=== PATIENT | female | born 1965 | race Caucasian/White ===

== ENCOUNTER 2018-04-07 19:29 | Inpatient (IN) | payer MEDICAID, OTHER ==
[~2018-04-07] VITALS: Ht 170.2 cm; Wt 80.9 kg
[2018-04-07] MEDS ORDERED: ALTEPLASE 100 MG/VIAL (ACTIVASE) IV ONE ×2 (19:30→20:00)
[2018-04-07] MEDS ORDERED: GLAT20KI3 SQ (19:44)
[2018-04-07] MEDS ORDERED: ASPI-586 PO (19:44)
[2018-04-07 19:55] LABS: BASOPHILS % (AUTO) 1 % (0-10); EOSINOPHILS # (AUTO) 0.1 10^3/uL (0.0-0.3); EOSINOPHILS % (AUTO) 2 % (0-10); HEMATOCRIT 42 % (35-52); HEMOGLOBIN 14.1 G/DL (11.5-16.0); LYMPHOCYTES # (AUTO) 2.9 X 10^3 (1.0-4.0); LYMPHOCYTES % (AUTO) 42 % (12-44); MEAN CORPUSCULAR HEMOGLOBIN 29 PG (25-34); MEAN CORPUSCULAR HGB CONC 33 G/DL (32-36); MEAN CORPUSCULAR VOLUME 87 FL (80-99); MEAN PLATELET VOLUME 10.5 FL (7.4-10.4); MONOCYTES # (AUTO) 0.5 X 10^3 (0.0-1.0); MONOCYTES % (AUTO) 7 % (0-12); NEUTROPHILS # (AUTO) 3.5 X 10^3 (1.8-7.8); NEUTROPHILS % (AUTO) 49 % (42-75); PLATELET COUNT 291 10^3/uL (130-400); RED BLOOD COUNT 4.88 10^6/uL (4.35-5.85); RED CELL DISTRIBUTION WIDTH 13.9 % (10.0-14.5); WHITE BLOOD COUNT 7.1 10^3/uL (4.3-11.0)
[2018-04-07] MEDS ORDERED: NS IV 1000 ML 1,000 ML IV SCH (20:00)
--- NOTE | 2018-04-07 20:00 | ED Neurological Problem ---
General Chief Complaint: Neurological Problems Stated Complaint: STROKE SYMPTOMS Nursing Triage Note: brought in by [facility] for right sided weakness, facial droop, asphasia. lkwt approx. 1830 Nursing Sepsis Screen: No Definite Risk Source: patient Exam Limitations: no limitations History of Present Illness Date Seen by Provider: Apr 07, 2018 Time Seen by Provider: 19:30 Initial Comments Patient presents by EMS to the ER with symptoms of stroke starting last known well time at 1830. She has no previous history of stroke but she does have a history of multiple sclerosis. She had a sudden acute onset of right facial weakness, right tongue deviation, right arm and leg weakness. She activated EMS and was able to write with her left arm. She does not smoke drink or use drugs. She has not been on steroids recently. She's had some pain in her right elbow and shoulder for the past month that she's been working up outpatient with her doctor and difficulty pronating her wrist secondary to this. EMS reports a blood glucose of 285. The patient denies diabetes. She says she takes aspirin daily but no blood thinners. She did not take her aspirin this morning. Allergies and Home Medications Allergies Coded Allergies: brompheniramine (Verified Allergy, Unknown, 04/07/18) cefixime (Verified Allergy, Unknown, 04/07/18) codeine (Verified Allergy, Unknown, 04/07/18) metronidazole (Verified Allergy, Unknown, 04/07/18) phenylpropanolamine (Verified Allergy, Unknown, 04/07/18) pseudoephedrine (Verified Allergy, Unknown, 04/07/18) tramadol (Verified Allergy, Unknown, 04/07/18) Uncoded Allergies: phener (Allergy, Unknown, 04/07/18) Patient Home Medication List Home Medication List Reviewed: Yes Review of Systems Review of Systems Constitutional: No chills, No diaphoresis Eyes: Denies Blindness, Denies Blurred Vision Ears, Nose, Mouth, Throat: denies ear pain, denies ear discharge Respiratory: No cough, No dyspnea on exertion Cardiovascular: No chest pain, No palpitations Gastrointestinal: No abdominal pain, No constipation, No diarrhea, No nausea Genitourinary: No discharge, No dysuria : No (Status post hysterectomy) Musculoskeletal: see HPI; No back pain; joint pain (Right elbow and shoulder) Psychiatric/Neurological: Denies Anxiety, Denies Depressed; Other (Multiple sclerosis) Past Ugphtlp-Lvaagp-Xaoteh Hx Patient Social History Alcohol Use: Denies Use Recreational Drug Use: No Smoking Status: Never a Smoker Recent Foreign Travel: No Contact w/Someone Who Travel: No Recent Infectious Disease Expo: No Recent Hopitalizations: No Immunizations Up To Date Tetanus Booster (TDap): Unknown Seasonal Allergies Seasonal Allergies: No Past Medical History Surgeries: Yes (hernia) Respiratory: No Cardiac: Yes (mv prolapse) Multiple Sclerosis, TIA : No Genitourinary: No Gastrointestinal: No Musculoskeletal: No Endocrine: No HEENT: No Cancer: No Psychosocial: No Integumentary: No Blood Disorders: No Physical Exam Vital Signs Vital Signs - First Documented Capillary Refill : Less Than 3 Seconds Height, Weight, BMI Height: 5'7.00" Weight: 180lbs. oz. 81.919530vl; BMI Method:Stated General Appearance: WD/WN, moderate distress HEENT: PERRL/EOMI, TMs normal, other (Rightward tongue deviation and right facial droop of branches 2 and 3 of cranial nerve V) Neck: non-tender, full range of motion, supple, normal inspection Respiratory: chest non-tender, lungs clear, normal breath sounds, no respiratory distress, no accessory muscle use Cardiovascular: normal peripheral pulses, regular rate, rhythm, no edema Peripheral Pulses: 2+ Dorsalis Pedis (R), 2+ Left Dors-Pedis (L), 2+ Radial Pulses (R), 2+ Radial Pulses (L) Gastrointestinal: normal bowel sounds, non tender, soft Back: normal inspection, no vertebral tenderness Extremities: normal range of motion, non-tender, normal capillary refill Neurologic/Psychiatric: other (Right facial droop partial right hemiparesis, rightward tongue deviation other cranial nerves are normal as tested) Crainal Nerves: normal hearing, PERRL; No abnormal eye position; abnormal speech (Moderate to severe dysarthria) Coordination/Gait: ABN nose to finger (R); No ABN nose to finger (L); other ( Heel to gomes test right leg is slow and difficult) Motor/Sensory: no sensory deficit, weak motor strength RUE (4 out of 5 without pronator drift), weak motor strength RLE (For out of 5 without drift) Skin: normal color, warm/dry Stroke Onset of Symptoms Date of Onset of Symptoms: Apr 07, 2018 Time of Symptom Onset: 18:30 Onset of Symptoms: Yes Symptoms onset unknown: No NIH Stroke Scale Assessment Select: Initial Level of Consciousness: 0=Alert (0), Level of Consciousness- Questions: 0=Answers both month/age (0), LOC Commands: 0=Performs both tasks (0) , Gaze: Normal (0), Visual Ortiz: 0=No visual loss (0), Facial Movement ( Facial Paresis): 2=Partial paralysis (2), Motor Function-Arms Right: 0=No drift (0), Motor Function-Arms Left: 0=No drift (0), Motor Function-Legs Right: 0=No drift (0), Motor Function-Legs Left: 0=No drift (0), Limb Ataxia: 2=Present in two limbs (2), Sensory: 0=Normal:no loss (0), Best Language: 0=No aphasia (0), Dysarthria: 2=Severe dysarthria (2), Extinction & Inattention: 0=No abnormality (0), Total: 6 Stroke Thrombolytic Exclusion Age 18 or Over: No Acute intenal hemorrhage: No History of CVA: No Uncontrolled Coagulation Defec: No Intracranial Hemorrhage: No Severe Hypertension: No GI or Bleed: No Subarachnoid Hemorrhage: No Intracranial Neoplasm/Aneurysm: No Oral Anticoagulants: No Surgery or Trauma: No Puncture of Non-Compressible V: No Recent CPR: No Diabetic Hemorrhagic Retinopat: No Organ Biopsy: No Recent Obstetric Delivery: No Glucose: No (285) Significant Hepatic Dysfunctio: No NIH Stoke Scale >22: No Bacterial Endocarditis: No Pericarditis: No Improving Symptoms: No Platelets: No TPA Contraindication: No IV - TPa Received IV - TPa Procedure Performed?: Yes IV - TPa Date: Apr 07, 2018 IV - TPa Time: 20:15 Progress/Results/Core Measures Results/Orders Lab Results Laboratory Tests Test 04/07/18 19:50 04/07/18 19:54 04/07/18 20:20 Range/Units White Blood Count 7.1 4.3-11.0 10^3/uL Red Blood Count 4.88 4.35-5.85 10^6/uL Hemoglobin 14.1 11.5-16.0 G/DL Hematocrit 42 35-52 % Mean Corpuscular Volume 87 80-99 FL Mean Corpuscular Hemoglobin 29 25-34 PG Mean Corpuscular Hemoglobin Concent 33 32-36 G/DL Red Cell Distribution Width 13.9 10.0-14.5 % Platelet Count 291 130-400 10^3/uL Mean Platelet Volume 10.5 H 7.4-10.4 FL Neutrophils (%) (Auto) 49 42-75 % Lymphocytes (%) (Auto) 42 12-44 % Monocytes (%) (Auto) 7 0-12 % Eosinophils (%) (Auto) 2 0-10 % Basophils (%) (Auto) 1 0-10 % Neutrophils # (Auto) 3.5 1.8-7.8 X 10^3 Lymphocytes # (Auto) 2.9 1.0-4.0 X 10^3 Monocytes # (Auto) 0.5 0.0-1.0 X 10^3 Eosinophils # (Auto) 0.1 0.0-0.3 10^3/uL Basophils # (Auto) 0.0 0.0-0.1 10^3/uL Prothrombin Time 12.8 12.2-14.7 SEC INR Comment 1.0 0.8-1.4 Activated Partial Thromboplast Time 25 24-35 SEC D-Dimer 0.31 0.00-0.49 UG/ML Sodium Level 142 135-145 MMOL/L Potassium Level 3.8 3.6-5.0 MMOL/L Chloride Level 107 98-107 MMOL/L Carbon Dioxide Level 23 21-32 MMOL/L Anion Gap 12 5-14 MMOL/L Blood Urea Nitrogen 14 7-18 MG/DL Creatinine 1.13 0.60-1.30 MG/DL Estimat Glomerular Filtration Rate 50 BUN/Creatinine Ratio 12 Glucose Level 94 70-105 MG/DL Calcium Level 9.8 8.5-10.1 MG/DL Corrected Calcium 9.4 8.5-10.1 MG/DL Total Bilirubin 0.6 0.1-1.0 MG/DL Aspartate Amino Transf (AST/SGOT) 17 5-34 U/L Alanine Aminotransferase (ALT/SGPT) 10 0-55 U/L Alkaline Phosphatase 71 40-136 U/L Troponin I < 0.30 <0.30 NG/ML Total Protein 7.4 6.4-8.2 GM/DL Albumin 4.5 3.2-4.5 GM/DL Glucometer 92 70-110 MG/DL Urine Color YELLOW Urine Clarity CLEAR Urine pH 6 5-9 Urine Specific [place] 1.020 1.016-1.022 Urine Protein NEGATIVE NEGATIVE Urine Glucose (UA) NEGATIVE NEGATIVE Urine Ketones NEGATIVE NEGATIVE Urine Nitrite NEGATIVE NEGATIVE Urine Bilirubin NEGATIVE NEGATIVE Urine Urobilinogen NORMAL NORMAL MG/DL Urine Leukocyte Esterase 1+ H NEGATIVE Urine RBC (Auto) NEGATIVE NEGATIVE Urine RBC 0-2 /HPF Urine WBC NONE /HPF Urine Squamous Epithelial Cells 2-5 /HPF Urine Crystals PRESENT H /LPF Urine Calcium Oxalate Crystals RARE H /LPF Urine Amorphous Sediment FEW LANE URATES H /LPF Urine Bacteria NEGATIVE /HPF Urine Casts NONE /LPF Urine Mucus NEGATIVE /LPF Urine Culture Indicated NO My Orders Orders - REMY ZHANG Cbc With Automated Diff (04/07/18:33) Protime With Inr (04/07/18:33) Partial Thromboplastin Time (04/07/18:33) Comprehensive Metabolic Panel (04/07/18:33) Fibrin Degradation Products (04/07/18:33) Troponin I (04/07/18:33) Ua Culture If Indicated (04/07/18 19:33) Chest 1 View, Ap/Pa Only (04/07/18 19:33) Ekg Tracing (04/07/18:33) Nothing By Mouth (04/08/18 Breakfast) Accucheck Stat ONCE (04/07/18 19:33) Saline Lock/Iv-Start (04/07/18 19:33) Saline Lock/Iv-Start (04/07/18 19:33) Vital Signs Stroke Patient Q15M (04/07/18 19:33) Ct Head Wo-R/O Stroke (04/07/18 19:33) O2 (04/07/18 19:33) Intake & Output 06,14,22 (04/07/18 19:33) Monitor-Rhythm Ecg Trace Only (04/07/18 19:33) Dysphagia Screening Tool (04/07/18 19:33) Post Thrombolytic Adminstratio (04/07/18 19:33) Lipid Panel (04/08/18 06:00) Alteplase (Activase) (Activase Injection (04/07/18 19:30) Ct Angio Head/Neck (04/07/18 19:56) Vital Signs Stroke Patient Q15M (04/07/18 20:00) Dysphagia Screening Tool (04/07/18 20:00) Alteplase (Activase) (Activase Injection (04/07/18 20:00) Ns Iv 1000 Ml (Sodium Chloride 0.9%) (04/07/18 20:00) Post Thrombolytic Adminstratio (04/07/18 20:00) Post Thrombolytic Adminstratio (04/07/18 20:00) Ct Head Wo (04/08/18 20:00) Iohexol Injection (Omnipaque 350 Mg/Ml 1 (04/07/18 20:30) Sodium Chloride Flush (Catheter Flush Sy (04/07/18 20:30) Ns (Ivpb) (Sodium Chloride 0.9%) (04/07/18 20:30) Pharmacy Communication (Pharmacy Communi (04/07/18 20:29) Medications Given in ED Current Medications Medications Dose Ordered Sig/Tri Route Start Time Stop Time Status Last Admin Dose Admin Alteplase, Recombinant 73 mg 2000 ONCE IV 04/07/18 20:00 04/07/18 20:03 DC 04/07/18 20:12 73 MG Iohexol 100 ml ONCE ONCE IV 04/07/18 20:30 04/07/18 20:31 DC 04/07/18 20:32 65 ML Sodium Chloride 10 ml NEEDED PRN IV 04/07/18 20:30 04/07/18 20:32 10 ML Sodium Chloride 250 ml ONCE ONCE IV 04/07/18 20:30 04/07/18 20:31 DC 04/07/18 20:32 80 ML Vital Signs/I&O 04/07/18 04/07/18 19:29 19:29 Temp 98.6 Pulse 91 Resp 18 B/P (MAP) 141/84 (103) Pulse Ox 100 100 O2 Delivery Room Air Room Air Blood Pressure Mean: 103 FSBG Bedside Testing Finger Stick Blood Glucose: 92 Blood Glucose Action Taken: NOTIFIED Initial ECG Impression Date: Apr 07, 2018 Initial ECG Impression Time: 19:38 Initial ECG Rate: 82 Initial ECG Rhythm: Normal Sinus Initial ECG Intervals: Normal Initial ECG Impression: Normal Comment No ST changes. Diagnostic Imaging Diagonstic Imaging: Xray Plain Films/CT/US/NM/MRI: chest (1v) Comments VIA [facility] [place], [place] NAME: XAVIER FIGUEROA [facility] REC#: [id number] PT STATUS: REG ER : 1965 PHYSICIAN: REMY ZHANG MD ADMIT DATE: 04/07/18/ER Draft Date of Exam:04/07/18 CHEST 1 VIEW, AP/PA ONLY INDICATION: Right-sided weakness FINDINGS: The lungs are clear. The heart and vessels normal. There is no effusion or pneumothorax. IMPRESSION: No acute appearing abnormality Dictated on workstation # [id number] Dict: 04/07/182099 Trans: 04/07/182100 [facility] [id number] Interpreted by: JASSI MACKAY Electronically signed by: Reviewed: Reviewed by Hi Diagonstic Imaging: CT (Without contrast) Plain Films/CT/US/NM/MRI: head Comments NAME: XAVIER FIGUEROA [facility] REC#: [id number] PHYSICIAN: REMY ZHANG MD CC: JASSI MACKAY; REMY ZHANG Page 1 of 1 RADIOLOGY REPORT VIA [facility] [place], [place] CC: JASSI MACKAY; REMY ZHANG Page 1 of 1 RADIOLOGY REPORT NAME: XAVIER FIGUEROA [facility] REC#: [id number] PT STATUS: REG ER : 1965 PHYSICIAN: REMY ZHANG MD ADMIT DATE: 04/07/18/ER Signed Date of Exam: 04/07/18 CT HEAD WO-R/O STROKE INDICATION: "Stroke" There is no intracranial hemorrhage. No focal or generalized cortical edema is found. There is maintenance of the lowery-white matter differentiations and no sulcal effacement. The basilar cisterns are patent. Orbits, sinuses and calvarium were within normal limits. IMPRESSION: Unremarkable noncontrasted CT head Dictated by: Dictated on workstation # [id number] Dict: 04/07/181941 Trans: 04/07/181955 Interpreted by: JASSI MACKAY Electronically signed by: JASSI MACKAY 04/07/181955 Reviewed: Reviewed by Me Diagonstic Imaging: CT (Angiogram) Plain Films/CT/US/NM/MRI: head (Neck) Comments NAME: XAVIER FIGUEROA [facility] REC#: [id number] PHYSICIAN: REMY ZHANG MD CC: JASSI MACKAY; REMY ZHANG Page 2 of 2 RADIOLOGY REPORT VIA [place], [place] CC: JASSI MACKAY; REMY ZHANG Page 1 of 1 RADIOLOGY REPORT NAME: XAVIER FIGUEROA [facility] REC#: [id number] PT STATUS: REG ER : 1965 PHYSICIAN: REMY ZHANG MD ADMIT DATE: 04/07/18/ER Signed Date of Exam: 04/07/18 CT ANGIO HEAD/NECK PROCEDURE: CT angiography of the head and CT angiography of the neck with and without contrast. TECHNIQUE: Contiguous noncontrast images were obtained from the skull base through the vertex. After intravenous contrast administration, helical CT angiography of the neck was performed. Source data was reformatted into multiple MIP projections. Delayed post contrast acquisition was also obtained. INDICATION: Right-sided weakness CT angio neck: The left common carotid arises off the innominate as an anatomical variant. The aortic arch was patent. The bilateral cervical vertebral arteries patent and codominant. Bilateral common carotid arteries are patent. Carotid bulbs and bifurcations were unremarkable and the cervical internal carotids nonfocal and nonacute. CT angio head: The intracranial ICAs were patent. The left A1 segment is hypoplastic, the right A1 dominant. There is no abnormality at the level of the A-com and the paired anterior cerebral arteries are well opacified. The bilateral middle cerebral arteries unremarkable. The M4 and M3 segments are difficult to differentiate from adjacent venous opacification. No large vessel occlusion or intraluminal thrombus was found. The intrathecal vertebral arteries were patent. The basilar artery patent. The bilateral posterior cerebral arterial segments unremarkable. No aneurysm, branch occlusion or vascular malformation. IMPRESSION: This is an unremarkable CT angiographic evaluation of the neck and head Dictated by: Dictated on workstation # [id number] Dict: 04/07/182056 Trans: 04/07/182117 Interpreted by: JASSI MACKAY Electronically signed by: JASSI MACKAY 04/07/182117 Reviewed: Reviewed by Me Consults : Consults Notes Discussed with Dr. Nagy, [facility] neurology on-call and there are no contraindications and with NIH of 6.60 thinks it would be reasonable to do tPA. He thinks it's unlikely that there will be a large watershed clot to explain facial asymmetry without drift on the right side just weakness but he would do a CT angiogram and then call him back. 5: Discussed case imaging and labs and he agrees that the patient is not a candidate for mechanical thrombectomy and therefore we can keep her here do an MRI revealed whether there is new MS lesions or a infarct area. Departure Communication (Admissions) Time/Spoke to Admitting Phy: 22:04 Discussed case lab imaging findings and plan to do post stroke workup with Dr. Pierre she agrees take the patient in the ICU. Impression Primary Impression: Cerebrovascular accident due to cerebral artery occlusion Additional Impression: History of multiple sclerosis Disposition: ADMITTED INPATIENT Condition: Improved Admissions Decision to Admit Reason: Admit from ER (General) Decision to Admit/Date: Apr 07, 2018 Time/Decision to Admit Time: 22:04 REMY ZHANG Apr 07, 2018 20:00
[2018-04-07 20:16] LABS: ALANINE AMINOTRANSFERASE 10 U/L (0-55); ALBUMIN 4.5 GM/DL (3.2-4.5); ALKALINE PHOSPHATASE 71 U/L (40-136); BILIRUBIN,TOTAL 0.6 MG/DL (0.1-1.0); BUN/CREATININE RATIO 12; CALCIUM 9.8 MG/DL (8.5-10.1); CARBON DIOXIDE 23 MMOL/L (21-32); CREATININE SERUM 1.13 MG/DL (0.60-1.30); GFR ESTIMATED 50; GLUCOSE 94 MG/DL (70-105); TOTAL PROTEIN 7.4 GM/DL (6.4-8.2)
[2018-04-07] MEDS ORDERED: RECEIVED CONTRAST (Hold Metformin) IV SCH (20:30)
[2018-04-07] MEDS ORDERED: NS 250 ML (IVPB) BAG IV ONE (20:30)
[2018-04-07] MEDS ORDERED: IOHEXOL 350 MG/ML 100 ML (OMNIPAQUE 350) VIAL IV ONE (20:30)
[2018-04-07] MEDS ORDERED: CATHETER FLUSH 10 ML SYR IV PRN (20:30)
[2018-04-07 20:32] LABS: CHLORIDE 107 MMOL/L (98-107); POTASSIUM 3.8 MMOL/L (3.6-5.0); SODIUM 142 MMOL/L (135-145)
[2018-04-07 20:32] LABS: BILIRUBIN,URINE NEGATIVE (NEGATIVE); CLARITY,URINE CLEAR; COLOR,URINE YELLOW; GLUCOSE, URINE (UA) NEGATIVE (NEGATIVE); KETONES,URINE NEGATIVE (NEGATIVE); LEUKOCYTE ESTERASE ,URINE 1+ (NEGATIVE); NITRITE,URINE NEGATIVE (NEGATIVE); PH,URINE 6 (5-9); PROTEIN,URINE NEGATIVE (NEGATIVE); UROBILINOGEN,URINE NORMAL (NORMAL)
[2018-04-07 20:51] LABS: BACTERIA,URINE NEGATIVE /HPF; RBC,URINE 0-2 /HPF
[2018-04-07 20:52] LABS: AMORPHOUS SEDIMENT,UR FEW AMOR URATES /LPF; CALCIUM OXALATE CRYSTALS,UR RARE /LPF
[2018-04-07 21:10] LABS: FIBRIN DEGRADATION PRODUCTS 0.31 UG/ML (0.00-0.49); PROTHROMBIN TIME PATIENT 12.8 SEC (12.2-14.7)
--- NOTE | 2018-04-07 21:14 | Diagnostic Imaging Report ---
PROCEDURE: CT angiography of the head and CT angiography of the neck with and without contrast. TECHNIQUE: Contiguous noncontrast images were obtained from the skull base through the vertex. After intravenous contrast administration, helical CT angiography of the neck was performed. Source data was reformatted into multiple MIP projections. Delayed post contrast acquisition was also obtained. INDICATION: Right-sided weakness CT angio neck: The left common carotid arises off the innominate as an anatomical variant. The aortic arch was patent. The bilateral cervical vertebral arteries patent and codominant. Bilateral common carotid arteries are patent. Carotid bulbs and bifurcations were unremarkable and the cervical internal carotids nonfocal and nonacute. CT angio head: The intracranial ICAs were patent. The left A1 segment is hypoplastic, the right A1 dominant. There is no abnormality at the level of the A-com and the paired anterior cerebral arteries are well opacified. The bilateral middle cerebral arteries unremarkable. The M4 and M3 segments are difficult to differentiate from adjacent venous opacification. No large vessel occlusion or intraluminal thrombus was found. The intrathecal vertebral arteries were patent. The basilar artery patent. The bilateral posterior cerebral arterial segments unremarkable. No aneurysm, branch occlusion or vascular malformation. IMPRESSION: This is an unremarkable CT angiographic evaluation of the neck and head Dictated by: Dictated on workstation # [id number]
[2018-04-07 22:56] VITALS: BP 128/70
[2018-04-07 23:00] VITALS: BP 123/74
[2018-04-07 23:15] VITALS: BP 125/61
[2018-04-07] MEDS ORDERED: ACETAMINOPHEN 500 MG TAB (TYLENOL) PO PRN (23:15)
[2018-04-07] MEDS ORDERED: diphenhydrAMINE 25 MG TAB (BENADRYL) PO PRN (23:15)
[2018-04-07] MEDS ORDERED: ONDANSETRON 4 MG/2 ML (SDV) Z0FRAN IV PRN (23:15)
[2018-04-07] MEDS ORDERED: oxyCODONE/APAP 5/325MG (PERCOCET 5) TABLET PO PRN (23:15)
[2018-04-07] MEDS ORDERED: MILK OF MAGNESIA 400 MG/5 ML 30 ML UDC PO PRN (23:15)
[2018-04-07 23:30] VITALS: BP 120/65
[2018-04-07 23:45] VITALS: BP 126/59
[2018-04-08] VITALS (29 sets, daily range): BP systolic 85–136; BP diastolic 38–90
[2018-04-08 03:31] LABS: BASOPHILS % (AUTO) 0 % (0-10); EOSINOPHILS # (AUTO) 0.1 10^3/uL (0.0-0.3); EOSINOPHILS % (AUTO) 2 % (0-10); HEMATOCRIT 38 % (35-52); HEMOGLOBIN 13.2 G/DL (11.5-16.0); LYMPHOCYTES # (AUTO) 3.1 X 10^3 (1.0-4.0); LYMPHOCYTES % (AUTO) 45 % (12-44); MEAN CORPUSCULAR HEMOGLOBIN 30 PG (25-34); MEAN CORPUSCULAR HGB CONC 35 G/DL (32-36); MEAN CORPUSCULAR VOLUME 87 FL (80-99); MEAN PLATELET VOLUME 10.8 FL (7.4-10.4); MONOCYTES # (AUTO) 0.5 X 10^3 (0.0-1.0); MONOCYTES % (AUTO) 7 % (0-12); NEUTROPHILS # (AUTO) 3.1 X 10^3 (1.8-7.8); NEUTROPHILS % (AUTO) 46 % (42-75); PLATELET COUNT 237 10^3/uL (130-400); RED BLOOD COUNT 4.39 10^6/uL (4.35-5.85); RED CELL DISTRIBUTION WIDTH 13.7 % (10.0-14.5); WHITE BLOOD COUNT 6.8 10^3/uL (4.3-11.0)
[2018-04-08 03:51] LABS: ALANINE AMINOTRANSFERASE 9 U/L (0-55); ALBUMIN 3.8 GM/DL (3.2-4.5); ALKALINE PHOSPHATASE 60 U/L (40-136); BILIRUBIN,TOTAL 0.9 MG/DL (0.1-1.0); BUN/CREATININE RATIO 13; CALCIUM 8.6 MG/DL (8.5-10.1); CARBON DIOXIDE 21 MMOL/L (21-32); CHLORIDE 109 MMOL/L (98-107); CHOLESTEROL 179 MG/DL (< 200); CREATININE SERUM 0.92 MG/DL (0.60-1.30); GFR ESTIMATED > 60; GLUCOSE 102 MG/DL (70-105); HDL CHOLESTEROL 42 MG/DL (40-60); MAGNESIUM 2.1 MG/DL (1.8-2.4); PHOSPHORUS 3.5 MG/DL (2.3-4.7); POTASSIUM 3.6 MMOL/L (3.6-5.0); SODIUM 141 MMOL/L (135-145); TOTAL PROTEIN 6.2 GM/DL (6.4-8.2); TRIGLYCERIDES 77 MG/DL (<150); VLDL CHOLESTEROL 15 MG/DL (5-40)
[2018-04-08] MEDS: 1/2 NS W/KCL 20 MEQ/L 1,000 ML IV SCH ×4 (05:22→18:38)
--- NOTE | 2018-04-08 06:02 | Pulmonary Consultation ---
History of Present Illness History of Present Illness Date of Consultation 04/08/18 05:55 Time Seen by Provider: 05:55 Date of Admission History of Present Illness 53 yo with hx of MS presented to ED with suspected CVA secondary to acute right facial weakness, right tongue deviation, right arm and leg weakness. No prior hx of CVA. Pt did get TPA in ED. Her NIH was 6 and is currently NIH 1. TPA was given around 2011 last night. Pt is currently NPO and failed swallow eval last night. Allergies and Home Medications Allergies Coded Allergies: brompheniramine (Verified Allergy, Unknown, 04/07/18) cefixime (Verified Allergy, Unknown, 04/07/18) codeine (Verified Allergy, Unknown, 04/07/18) metronidazole (Verified Allergy, Unknown, 04/07/18) phenylpropanolamine (Verified Allergy, Unknown, 04/07/18) pseudoephedrine (Verified Allergy, Unknown, 04/07/18) tramadol (Verified Allergy, Unknown, 04/07/18) Uncoded Allergies: phener (Allergy, Unknown, 04/07/18) Home Medications Atorvastatin Calcium 80 Mg Tablet, 80 MG PO HS Prescribed by: TERE CAAL on 04/09/18 1144 Cyclobenzaprine HCl 10 Mg Tablet, 10 MG PO Q8H PRN for SPASMS, (Reported) Meloxicam 7.5 Mg Tablet, 7.5 MG PO DAILY PRN for PRN, (Reported) Past Zgyapkc-Awnjkj-Abbatk Hx Patient Social History Alcohol Use: Occasionally Uses Number of Drinks Today: 0 Alcohol Beverage of Choice: Wine Recreational Drug Use: No Smoking Status: Never a Smoker Recent Foreign Travel: No Contact w/Someone Who Travel: No Recent Infectious Disease Expo: No Recent Hopitalizations: No Immunizations Up To Date Tetanus Booster (TDap): Unknown PED Vaccines UTD: No Seasonal Allergies Seasonal Allergies: No Past Medical History Surgeries: Yes Respiratory: Yes Sleep Apnea Cardiac: Yes (mv prolapse) Neurological: Yes Multiple Sclerosis, TIA : No Female Reproductive Disorders: Endometriosis, Ovarian Cyst Genitourinary: No Gastrointestinal: Yes Gastroesophageal Reflux, Hiatal Hernia Musculoskeletal: Yes (BONE SPURS) Endocrine: Yes (THYROID NODULES) HEENT: No Cancer: No Psychosocial: No Integumentary: No Blood Disorders: No Family Medical History Aneurysm of blood vessel of brain 19 MOTHER, , Onset:Unknown Autism son, Onset:2 Cardiovascular disease 19 MOTHER, , Onset:Unknown Diabetes mellitus 19 FATHER, Onset:60 years & older 19 MOTHER, , Onset:60 years & older FH: breast cancer 19 MOTHER, , Onset:39 FH: cerebral palsy son, Onset: FH: heart attack 19 MOTHER, , Onset:Unknown FH: stroke 19 MOTHER, , Onset:Unknown Hypercholesterolemia 19 FATHER, Onset:Unknown 19 MOTHER, , Onset:Unknown Hypertension 19 FATHER, Onset:Unknown 19 MOTHER, , Onset:Unknown Thyroid disease 19 MOTHER, , Onset:Unknown Review of Systems Time Seen by Provider: 12:46 Sepsis Event Evaluation Height, Weight, BMI Height: 5'7.00" Weight: 180lbs. 2.0oz. 81.885023bh; 28.2 BMI Method:Stated Exam Exam Vital Signs Date Time Temp Pulse Resp B/P (MAP) Pulse Ox O2 Delivery O2 Flow Rate FiO2 04/08/18 04:00 62 19 91/52 (65) 95 Room Air 04/08/18 03:00 69 17 108/64 (79) 98 Room Air 04/08/18 02:00 74 19 96/53 (67) 95 Room Air 04/08/18 01:00 78 04/08/18 01:00 73 18 119/74 (89) 94 Room Air 04/08/18 00:00 71 16 121/74 (90) 98 Room Air 04/07/18 23:45 78 16 126/59 (81) 98 Room Air 04/07/18 23:30 74 10 120/65 (83) 98 Room Air 04/07/18 23:15 68 13 125/61 (82) 99 Room Air 04/07/18 23:03 78 04/07/18 23:00 70 18 123/74 (90) 97 Room Air 04/07/18 22:56 96.8 71 14 128/70 (89) 99 Room Air 04/07/18 22:50 97 Room Air 04/07/18 22:43 98.2 81 18 122/76 (103) 97 Room Air 04/07/18 19:29 100 Room Air 04/07/18 19:29 98.6 91 18 141/84 (103) 100 Room Air I & O 04/08/18 07:00 Intake Total 73 ml Output Total 325 ml Balance -252 ml Height & Weight Height: 5'7.00" Weight: 180lbs. 2.0oz. 81.229927ha; 28.2 BMI Method:Stated General Appearance: Anxious, Mild Distress HEENT: PERRL/EOMI Neck: Full Range of Motion, Non Tender, Supple Respiratory: Chest Non Tender, Lungs Clear, Normal Breath Sounds, No Accessory Muscle Use, No Respiratory Distress Cardiovascular: Regular Rate, Rhythm, No Edema, No Gallop, No JVD Capillary Refill: Less Than 3 Seconds Peripheral Pulses: 2+ Dorsalis Pedis (R), 2+ Left Dors-Pedis (L), 2+ Radial Pulses (R), 2+ Radial Pulses (L) Gastrointestinal: normal bowel sounds, non tender, soft Neurologic/Psychiatric: Alert, Oriented x3 Skin: Normal Color, Warm/Dry Lymphatic: No Adenopathy Results Lab Laboratory Tests 04/07/18 19:50 04/08/18 02:55 Assessment/Plan Assessment/Plan Acute CVA s/p TPA at 2011 last night -Repeat CT without contrast 24 hrs after TPA -Give ASA or plavix 24hrs after TPA -Repeat swallow study prior to anything PO -Echocardiogram, carotid dopplers pending Hx of NICCI RAZO DO Apr 08, 2018 06:02
[2018-04-08] MEDS ORDERED: FAMOTIDINE 20MG/2ML IV (PEPCID) IV SCH (09:00)
--- NOTE | 2018-04-08 09:23 | Diagnostic Imaging Report ---
EXAM: Portable erect AP chest at 2:07 a.m. INDICATION: CVA, respiratory distress FINDINGS: As noted on the prior exam of 04/07/2018, there is shallow inspiration. Allowing for this technical factor, the heart is borderline enlarged but stable. The central pulmonary vascularity is prominent but this too is most likely related to the shallow degree of inspiration. However, there is a vague area of slightly increased density in the right lung base. I suspect that there is mild atelectasis/infiltrate in this area. The right upper lung and left lung are generally clear. The mediastinum is not widened. The osseous structures are intact. IMPRESSION: There is mild right lower lobe atelectasis/infiltrate. The overall appearance of the chest is otherwise no different than on the prior exam. Dictated by: Dictated on workstation # [id number]
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
[2018-04-08] MEDS: raNItidine 50 MG/2 ML INJ (ZANTAC) IJ SCH ×2 (10:22→21:41)
--- NOTE | 2018-04-08 11:41 | Diagnostic Imaging Report ---
PROCEDURE: US carotid duplex, bilateral. TECHNIQUE: Multiple real-time grayscale images were obtained over the carotid arteries in various projections, bilaterally. Additional duplex Doppler and color Doppler images were also obtained. INDICATION: Right-sided weakness. COMPARISON: None available. FINDINGS: Right carotid circulation: The right common carotid artery is normal in caliber, and there is no significant stenosis. Peak systolic velocity in the right common carotid artery is 76 cm/sec. There is no appreciable plaque in the carotid bulb and proximal internal carotid artery. The peak systolic velocity in the proximal internal carotid artery is 83 cm/sec. Proximal aspect of the external carotid artery is patent with expected high resistance waveforms, and peak systolic velocity of 96 cm/sec. Left carotid circulation: The left common carotid artery is normal in caliber, and there is no significant stenosis. Peak systolic velocity in the left common carotid artery is 96 cm/sec. There is no appreciable atherosclerotic plaque in the carotid bulb and proximal internal carotid artery. The peak systolic velocity in the proximal internal carotid artery is 91 cm/sec. Proximal aspect of the external carotid artery is patent with expected high resistance waveforms, and peak systolic velocity of 93 cm/sec. Vertebral arteries: Flow in the bilateral vertebral arteries is antegrade. IMPRESSION: 1. Normal bilateral proximal internal carotid arteries. 2. Patent vertebral arteries with antegrade flow. Parameters based on the consensus panel Almanza-Scale and Doppler ultrasound criteria published May 2003, Radiology, Volume 229. DOPPLER (peak systolic velocity M/S Right Left CCA .76 .96 ICA Proximal .55 .37 ICA Mid .77 .78 ICA Distal .83 .91 RATIO 1.09 .95 ECA .96 .93 VERT .44 .46 Dictated by: Dictated on workstation # [id number]
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
[2018-04-08] MEDS ORDERED: NS (IVPB) 0 ML ONE (13:48)
[2018-04-08] MEDS ORDERED: CYCL10TA9 PO (14:04)
[2018-04-08] MEDS ORDERED: MELO7.5T46 PO (14:05)
--- NOTE | 2018-04-08 20:31 | Diagnostic Imaging Report ---
PROCEDURE: CT head without contrast. TECHNIQUE: Multiple contiguous axial images were obtained through the brain without the use of intravenous contrast. INDICATION: Stroke, status post TPA, with right-sided weakness. FINDINGS: There is no focal or generalized cerebral edema. There is no intracranial hemorrhage. Almanza-white matter differentiations are maintained. The ventricular system nondilated and nondisplaced. No evidence for elevated intracranial pressures. Orbits, sinuses and calvarium are unremarkable. IMPRESSION: Normal CT head. Dictated by: Dictated on workstation # [id number]
[2018-04-08] MEDS ORDERED: ATORVASTATIN 80 MG (LIPITOR) TABLET PO SCH (21:00)
[2018-04-08] MEDS: ASPIRIN 325 MG (5 GR) TABLET PO SCH (21:41)
[2018-04-09] VITALS (10 sets, daily range): BP systolic 90–143; BP diastolic 55–76
[2018-04-09] MEDS: 1/2 NS W/KCL 20 MEQ/L 1,000 ML IV SCH ×2 (02:05→08:35)
[2018-04-09 03:55] LABS: BASOPHILS % (AUTO) 0 % (0-10); EOSINOPHILS # (AUTO) 0.2 10^3/uL (0.0-0.3); EOSINOPHILS % (AUTO) 3 % (0-10); HEMATOCRIT 39 % (35-52); HEMOGLOBIN 12.9 G/DL (11.5-16.0); LYMPHOCYTES # (AUTO) 3.3 X 10^3 (1.0-4.0); LYMPHOCYTES % (AUTO) 51 % (12-44); MEAN CORPUSCULAR HEMOGLOBIN 29 PG (25-34); MEAN CORPUSCULAR HGB CONC 33 G/DL (32-36); MEAN CORPUSCULAR VOLUME 87 FL (80-99); MEAN PLATELET VOLUME 10.7 FL (7.4-10.4); MONOCYTES # (AUTO) 0.4 X 10^3 (0.0-1.0); MONOCYTES % (AUTO) 6 % (0-12); NEUTROPHILS # (AUTO) 2.6 X 10^3 (1.8-7.8); NEUTROPHILS % (AUTO) 40 % (42-75); PLATELET COUNT 240 10^3/uL (130-400); RED BLOOD COUNT 4.48 10^6/uL (4.35-5.85); RED CELL DISTRIBUTION WIDTH 13.7 % (10.0-14.5); WHITE BLOOD COUNT 6.5 10^3/uL (4.3-11.0)
[2018-04-09 04:14] LABS: BUN/CREATININE RATIO 10; CALCIUM 8.9 MG/DL (8.5-10.1); CARBON DIOXIDE 21 MMOL/L (21-32); CHLORIDE 111 MMOL/L (98-107); CREATININE SERUM 0.81 MG/DL (0.60-1.30); GFR ESTIMATED > 60; GLUCOSE 89 MG/DL (70-105); MAGNESIUM 2.3 MG/DL (1.8-2.4); PHOSPHORUS 2.8 MG/DL (2.3-4.7); SODIUM 141 MMOL/L (135-145)
[2018-04-09] MEDS ORDERED: KCL 20 MEQ TAB (K-DUR) PO SCH (06:00)
[2018-04-09] MEDS ORDERED: MAGNESIUM 1 GM/100 ML IVPB 100 ML IV SCH (06:00)
[2018-04-09] MEDS ORDERED: POTASSIUM CL 10MEQ/50ML IVPB 50 ML IV SCH (06:00)
--- NOTE | 2018-04-09 06:49 | Pulmonary Progress Note ---
Subjective Time Seen by Provider: 12:57 Sepsis Event Evaluation Height, Weight, BMI Height: 5'7.00" Weight: 178lbs. 4.0oz. 80.761026ov; 28.2 BMI Method:Stated Exam Exam Vital Signs Date Time Temp Pulse Resp B/P (MAP) Pulse Ox O2 Delivery O2 Flow Rate FiO2 04/09/18 06:00 61 18 92/65 (74) 94 Room Air 04/09/18 05:00 64 19 106/58 (74) 94 Room Air 04/09/18 04:00 56 19 93/61 (72) 96 Room Air 04/09/18 03:05 98 Room Air 04/09/18 03:05 98.4 04/09/18 03:00 61 19 105/55 (72) 94 Room Air 04/09/18 02:00 58 19 90/56 (67) 95 Room Air 04/09/18 01:00 61 23 97/58 (71) 98 Room Air 04/09/18 01:00 61 04/09/18 00:33 97.4 04/09/18 00:30 96 Room Air 04/09/18 00:12 58 25 100/58 (72) 96 Room Air 04/08/18 23:00 58 18 115/73 (87) 98 Room Air 04/08/18 22:00 56 16 131/79 (96) 100 Room Air 04/08/18 21:41 97.4 04/08/18 21:00 60 20 127/77 (94) 99 Room Air 04/08/18 20:35 99 Room Air 04/08/18 20:30 97.8 04/08/18 19:54 65 04/08/18 19:00 61 22 131/75 (93) 97 Room Air 04/08/18 18:00 58 12 121/62 (81) 99 Room Air 04/08/18 17:30 56 118/72 (87) 99 Room Air 04/08/18 17:00 63 8 135/78 (97) 96 Room Air 04/08/18 16:30 70 36 127/87 (100) 95 Room Air 04/08/18 16:00 95 Room Air 04/08/18 16:00 97.3 66 30 127/90 (102) 97 Room Air 04/08/18 15:30 64 24 85/38 (54) 99 Room Air 04/08/18 15:00 68 9 119/71 (87) 96 Room Air 04/08/18 14:30 60 15 121/70 (87) 98 Room Air 04/08/18 14:00 61 27 92/78 (83) 97 Room Air 04/08/18 13:30 55 19 99/48 (65) 98 Room Air 04/08/18 13:00 57 04/08/18 13:00 57 18 105/51 (69) 97 Room Air 04/08/18 12:45 64 20 114/63 (80) 98 Room Air 04/08/18 12:30 65 17 119/69 (86) 99 Room Air 04/08/18 12:15 69 21 132/67 (88) 99 Room Air 04/08/18 12:00 95 Room Air 04/08/18 11:47 97.3 68 19 131/66 (87) 99 Room Air 04/08/18 10:00 76 19 99 Room Air 04/08/18 09:00 71 11 136/63 (87) 98 Room Air 04/08/18 08:00 95 Room Air 04/08/18 08:00 66 28 97/58 (71) 94 Room Air 04/08/18 07:00 75 37 119/69 (86) 96 Room Air 04/08/18 07:00 75 I & O 04/09/18 07:00 Intake Total 1250 ml Output Total 3225 ml Balance -1975 ml Height & Weight Height: 5'7.00" Weight: 178lbs. 4.0oz. 80.553546sf; 28.2 BMI Method:Stated General Appearance: Anxious HEENT: PERRL/EOMI, Other (Deviation of the tongue to the right side with spasticity decreased sensation on the right side smile is intact) Neck: Full Range of Motion, Normal Inspection, Non Tender, Supple Respiratory: Chest Non Tender, Lungs Clear, Normal Breath Sounds, No Accessory Muscle Use, No Respiratory Distress Cardiovascular: Regular Rate, Rhythm, No Edema, No Gallop, No JVD, No Murmur, Normal Peripheral Pulses Capillary Refill: Less Than 3 Seconds Peripheral Pulses: 2+ Dorsalis Pedis (R), 2+ Left Dors-Pedis (L), 2+ Radial Pulses (R), 2+ Radial Pulses (L) Gastrointestinal: normal bowel sounds, non tender, soft Extremity: Normal Capillary Refill, Normal Inspection, Normal Range of Motion, Non Tender, No Calf Tenderness, No Pedal Edema Neurologic/Psychiatric: Alert, 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
[2018-04-09] MEDS ORDERED: GADOBUTROL 10 MMOL/10 ML (GADAVIST) VIAL IV ONE (07:30)
--- NOTE | 2018-04-09 07:52 | Diagnostic Imaging Report ---
CLINICAL INDICATION: Patient has history of multiple sclerosis and stroke. Patient has left arm and hand numbness. EXAM: MRI of the brain performed without and with 8 cc of Gadavist IV contrast. Sequences include axial DWI, ADC map, axial gradient echo, axial T2, axial FLAIR, sagittal FLAIR, axial T1, axial T1 post IV contrast, coronal T1 fat-sat post IV contrast, and sagittal T1 post IV contrast. COMPARISON: Head CT without contrast dated 04/08/2018. FINDINGS: There is no evidence of acute cerebral infarct, intracranial hemorrhage, or gross mass effect. There is a small area of cortical high T2 signal and volume loss which is in the region of the right parietal lobe along the post central gyrus region concerning for chronic ischemic process. The remainder of the brain parenchyma is unremarkable with no abnormal signal abnormality. Mildly prominent perivascular spaces are seen throughout both cerebral hemispheres. The brain parenchymal volume appears appropriate for patient's age. There is normal lowery-white matter distinction. There is no significant midline shift or herniation. The picayune of [place] vascular structures show no gross abnormality as visualized. The pituitary gland, sella, and suprasellar regions are unremarkable as visualized. There is no evidence of hydrocephalus. The basal cisterns are unremarkable. The skull, extracranial soft tissue, and orbits are unremarkable. The paranasal sinuses are unremarkable. Temporal bones show no significant abnormality. IMPRESSION: 1: There is no evidence of acute cerebral infarction, intracranial hemorrhage, hydrocephalus, or enhancing mass. 2: Small area of suspected chronic cortical cerebral infarct involving the right parietal lobe. 3: The remainder of this exam is unremarkable. Dictated by: Dictated on workstation # [id number]
[2018-04-09] MEDS: raNItidine 50 MG/2 ML INJ (ZANTAC) IJ SCH (08:21)
[2018-04-09] MEDS: ASPIRIN 325 MG (5 GR) TABLET PO SCH (08:21)
--- NOTE | 2018-04-09 09:05 | Diagnostic Imaging Report ---
INDICATION: CVA and dyspnea. TIME OF EXAM: 3:30 AM Correlation is made with prior study from one day earlier. FINDINGS: The heart size is normal. The pulmonary vascularity is unremarkable. The lungs are clear. No infiltrate, effusion or pneumothorax is detected. IMPRESSION: No acute cardiopulmonary process is detected. Dictated by: Dictated on workstation # [id number]
--- NOTE | 2018-04-09 09:28 | Physical Therapy Evaluation ---
PT Evaluation-General Medical Diagnosis Admission Date Apr 07, 2018 at 22:15 Medical Diagnosis: CVA/MS Onset Date: Apr 07, 2018 Therapy Diagnosis Therapy Diagnosis: debility Height/Weight Height (Feet): 5 Height (Inches): 7.00 Weight (Pounds): 178 Weight (Ounces): 4.0 Precautions Precautions/Isolations: Fall Prevention, Standard Precautions Weight Bear Status Right Lower Extremity: Right Weight Bearing/Tolerated Left Lower Extremity: Left Weight Bearing/Tolerated Referral Physician: Gabby Reason for Referral: Evaluation/Treatment Medical History Additional Medical History MS Current History Traveling from [place] with onset of right sided weakness/facial drooping and aphasia Reviewed History: Yes Social History Home: Single Level Current Living Status: Children Prior/Core FIM Prior Level of Function Functional [place] Measure 0=Not Assessed/NA 4=Minimal Assistance 1=Total Assistance 5=Supervision or Setup 2=Maximal Assistance 6=Modified [place] 3=Moderate Assistance 7=Complete [place] Bed Mobility: 7 Transfers (B,C,W/C) (FIM): 7 Gait: 7 Locomotion: 7 PT Evaluation-Current Subjective Patient reports she is feeling better and wants to go home today. Pain Numeric Pain Scale: 0-No Pain Location: No Pain Reported Objective Patient Orientation: Normal For Age Problem Solving: Good ROM/Strength ROM Lower Extremities bilateral LE WFL Strength Lower Extremities 5/5 grossly bilaterally Integumentary/Posture Integumentary refer to nursing notes Bowel Incontinence: No Bladder Incontinence: No Posture erect Neuromuscular (Tone, Coordination, Reflexes) grossly intact Sensory Vision: Functional Hearing: Functional Sensation Right Lower Extremit: Intact Sensation Left Lower Extremity: Intact Transfers Functional [place] Measure 0=Not Assessed/NA 4=Minimal Assistance 1=Total Assistance 5=Supervision or Setup 2=Maximal Assistance 6=Modified [place] 3=Moderate Assistance 7=Complete [place] Transfers (B, C, W/C) (FIM): 7 Scootin Rollin Supine to/from Sit: 7 Sit to/from Stand: 7 Gait Mode of Locomotion: Walk Anticipated Mode of Locomotion: Walk Gait (FIM): 7 Distance (FIM): 3=150 ft Distance: >500' Gait Level of Assist: 7 Gait Assistive Device: None Comments/Gait Description normal, reciprocal pattern Balance Sitting Static: Normal Sitting Dynamic: Normal Standing Static: Normal Standing Dynamic: Normal Assessment/Needs 53 y.o. female, is currently at [facility] with all gross motor skills and does not require skilled PT intervention. Rehab Potential: Good PT Plan Treatment/Plan Treatment Plan: Discontinue PT, goals met Treatment Plan: Other Treatment Duration: Apr 09, 2018 Frequency: 1 time per week Estimated Hrs Per Day: .5 hour per day Patient and/or Family Agrees t: Yes Discharge Recommendations Therapy D/C Recommendations: Home Independently Time/GCodes Time In: 820 Time Out: 843 Total Billed Treatment Time: 23 Total Billed Treatment 1 visit EVMod 23 min G Codes Necessary: JANA Pelletier PT Apr 09, 2018 09:28
[2018-04-09] MEDS ORDERED: ATOR80TA76 PO (11:44)
--- NOTE | 2018-04-09 11:46 | Discharge Inst-Stroke w/wo TPA ---
Discharge Inst-Stroke w/wo TPA Discharge Medications New, Converted or Re-Newed RX: RX Given to Pt/Family Patient Instructions Please continue to take your medications as written. Please follow up with your primary care doctor and your neurologist to follow up this hospital stay. Additional Follow Up: Yes Return to The Hospital For: Recurrence of symptoms, weakness, slurred speech, facial droop, or if you feel you are getting worse. Activity & Diet Discharge Diet: Cardiac Diet Activity as Tolerated: Yes TERE CAAL MD Apr 09, 2018 11:46 am
--- NOTE | 2018-04-09 14:09 | Diagnostic Imaging Report ---
INDICATION: "Stroke" There is no intracranial hemorrhage. No focal or generalized cortical edema is found. There is maintenance of the lowery-white matter differentiations and no sulcal effacement. The basilar cisterns are patent. Orbits, sinuses and calvarium were within normal limits. IMPRESSION: Unremarkable noncontrasted CT head Dictated by: Dictated on workstation # [id number]
--- NOTE | 2018-04-09 14:26 | Diagnostic Imaging Report ---
INDICATION: Right-sided weakness FINDINGS: The lungs are clear. The heart and vessels normal. There is no effusion or pneumothorax. IMPRESSION: No acute appearing abnormality Dictated by: Dictated on workstation # [id number]
--- NOTE | 2018-04-13 11:41 | Physician Query-Final Dx ---
LYNETTE GERARDO 04/13/18 1141: Final Diagnosis Give Final Diagnosis Please give Final Diagnosis TERE CAAL MD 04/13/18 1425: Final Diagnosis Give Final Diagnosis TIA LYNETTE GERARDO Apr 13, 2018 11:41 TERE CAAL MD Apr 13, 2018 14:25
== END 2018-04-09 13:24 | disposition home or self-care (01) | DRG 62 ==
LOC: ER 19:30 → ICU 22:15 → 4TH 04-08 10:40 → ICU 04-08 12:04
PROVIDERS: ADMIT Internal Medicine; ATTEND Internal Medicine
DX: I63.9 Cerebral infarction, unspecified (principal); G81.91 Hemiplegia, unspecified affecting right dominant side; G35 Multiple sclerosis; R29.706 NIHSS score 6; R29.810 Facial weakness; R47.01 Aphasia; R47.1 Dysarthria and anarthria; R19.8 Other specified symptoms and signs involving the digestive system and abdomen; I34.1 Nonrheumatic mitral (valve) prolapse; M25.511 Pain in right shoulder; M25.521 Pain in right elbow; G47.30 Sleep apnea, unspecified; K21.9 Gastro-esophageal reflux disease without esophagitis; K44.9 Diaphragmatic hernia without obstruction or gangrene; Z79.82 Long term (current) use of aspirin; Z86.73 Personal history of transient ischemic attack (TIA), and cerebral infarction without residual deficits
CPT/HCPCS: 36415; 51702; 70450; 70496; 70498; 70553; 71045; 80048; 80053; 80061; 81000; 82962; 83036; 83735; 84100; 84484; 85025; 85379; 85610; 85730; 87081; 93005; 93041; 93306; 93880; 96361; 96365